=== PATIENT | female | born 1965 | race Caucasian/White ===

== ENCOUNTER → 2019-12-22 10:27 | Outpatient (BNVA) | payer OTHER, SELFPAY | PROVIDERS: Family Provider Nurse Practitioner; PCP Nurse Practitioner; Visit Provider Nurse Practitioner Family | DX: S82.899A Other fracture of unspecified lower leg, initial encounter for closed fracture (principal); X58.XXXA Exposure to other specified factors, initial encounter | CPT/HCPCS: 73610 ==

== ENCOUNTER → 2019-12-24 11:50 | Outpatient (BNVA) | payer OTHER, SELFPAY | PROVIDERS: Family Provider Nurse Practitioner; PCP Nurse Practitioner; Referring Provider Podiatrist Foot & Ankle Surgery; Visit Provider Podiatrist Foot & Ankle Surgery | DX: S82.899A Other fracture of unspecified lower leg, initial encounter for closed fracture (principal); X58.XXXA Exposure to other specified factors, initial encounter | CPT/HCPCS: 73610 ==

== ENCOUNTER → 2020-01-15 08:46 | Outpatient (BNVA) | payer OTHER, SELFPAY | PROVIDERS: Family Provider Nurse Practitioner; PCP Nurse Practitioner; Visit Provider Podiatrist Foot & Ankle Surgery | DX: S82.832A Other fracture of upper and lower end of left fibula, initial encounter for closed fracture (principal); X58.XXXA Exposure to other specified factors, initial encounter | CPT/HCPCS: 73610 ==

== ENCOUNTER → 2020-02-05 08:45 | Outpatient (BNVA) | payer OTHER, SELFPAY | PROVIDERS: Family Provider Nurse Practitioner; PCP Nurse Practitioner; Visit Provider Podiatrist Foot & Ankle Surgery | DX: S82.62XA Displaced fracture of lateral malleolus of left fibula, initial encounter for closed fracture (principal); X58.XXXA Exposure to other specified factors, initial encounter | CPT/HCPCS: 73610 ==

== ENCOUNTER → 2020-02-19 09:06 | Outpatient (BNVA) | payer OTHER, SELFPAY | PROVIDERS: Family Provider Nurse Practitioner; PCP Nurse Practitioner; Visit Provider Podiatrist Foot & Ankle Surgery | DX: Z47.89 Encounter for other orthopedic aftercare (principal); S82.65XD Nondisplaced fracture of lateral malleolus of left fibula, subsequent encounter for closed fracture with routine healing; W19.XXXD Unspecified fall, subsequent encounter | CPT/HCPCS: 73610 ==

== ENCOUNTER → 2023-01-10 14:36 | Outpatient (BNVA) | payer OTHER, SELFPAY | PROVIDERS: Family Provider Nurse Practitioner; PCP Nurse Practitioner; Visit Provider Internal Medicine | DX: M25.50 Pain in unspecified joint (principal); R53.83 Other fatigue; R76.8 Other specified abnormal immunological findings in serum; L40.9 Psoriasis, unspecified; R21 Rash and other nonspecific skin eruption; M45.0 Ankylosing spondylitis of multiple sites in spine; M47.898 Other spondylosis, sacral and sacrococcygeal region; M19.041 Primary osteoarthritis, right hand | CPT/HCPCS: 36415; 72202; 73120; 80053; 81001; 82533; 82550; 82784; 83516; 84100; 84443; 85025; 85651; 86003; 86008; 86036; 86140; 86160; 86162; 86200; 86235; 86255; 86376; 86431; 86704; 86803; 86812; 87340 ==

== ENCOUNTER 2023-02-17 10:37 | Outpatient (CLI) | payer OTHER, SELFPAY ==
[2023-02-17 11:50] LABS: Alanine Aminotransferase 18 U/L (0-33); Albumin Level 4.2 g/dL (3.5-5.2); Alkaline Phosphatase 108 U/L (35-105); Aspartate Amino Transferase 15 U/L (0-32); Blood Urea Nitrogen 14 mg/dL (6-20); Calcium 9.5 mg/dL (8.5-10.5); Carbon Dioxide 29 mmol/L (22-29); Chloride 103 mmol/L (98-107); Globulin 3.2 g/dL (1.3-4.6); Glomerular Filtration Rate 74.5 mL/min (90-130); Glucose 99 mg/dL (65-115); Osmolality Calculated 291 mOsm/kg (285-295); Phosphorus 2.9 mg/dL (2.5-4.5); Sodium 140 mmol/L (136-145); Total Bilirubin 0.5 mg/dL (0.15-1.2); Total Protein 7.4 g/dL (6.6-8.7)
[2023-02-17 11:53] LABS: Anion Gap 11.6 (5-19); Potassium 3.6 mmol/L (3.5-5.1)
== END 2023-02-17 10:38 | disposition home or self-care (01) ==
LOC: LAB 10:37
PROVIDERS: Family Provider Nurse Practitioner; PCP Nurse Practitioner; Visit Provider Internal Medicine
DX: R76.8 Other specified abnormal immunological findings in serum (principal); R53.83 Other fatigue; M25.50 Pain in unspecified joint
CPT/HCPCS: 36415; 80053; 84100

== ENCOUNTER 2023-03-23 10:44 | Outpatient (CLI) | payer OTHER, SELFPAY ==
[2023-03-30 18:21] LABS: Myositis EJ AB <11 SI (<11); Myositis JO-1 AB <11 SI (<11); Myositis MDA-5 AB <11 SI (<11); Myositis MI-2 Alpha AB <11 SI (<11); Myositis MI-2 Beta AB <11 SI (<11); Myositis NXP-2AB <11 SI (<11); Myositis OJ AB <11 SI (<11); Myositis PL-12 AB <11 SI (<11); Myositis PL-7 AB <11 SI (<11); Myositis SRP AB <11 SI (<11); Myositis TIF-1y AB <11 SI (<11)
== END 2023-03-23 10:45 | disposition home or self-care (01) ==
LOC: LAB 10:46
PROVIDERS: PCP Nurse Practitioner; Visit Provider Dermatology
DX: L30.9 Dermatitis, unspecified (principal); L57.8 Other skin changes due to chronic exposure to nonionizing radiation; M33.12 Other dermatomyositis with myopathy
CPT/HCPCS: 36415; 84182; 86235

== ENCOUNTER → 2023-11-13 08:01 | Outpatient (BNVA) | payer OTHER, SELFPAY | PROVIDERS: PCP Nurse Practitioner; Visit Provider Podiatrist Foot & Ankle Surgery | DX: M79.671 Pain in right foot (principal); G57.61 Lesion of plantar nerve, right lower limb | CPT/HCPCS: 73630 ==

== ENCOUNTER 2024-02-02 11:02 | Outpatient (CLI) | payer OTHER, SELFPAY ==
--- NOTE | 2024-02-02 11:30 | MM_ITS ---
WS: [email or web address] SCREENING DIGITAL BREAST TOMOSYNTHESIS MAMMOGRAM WITH CAD HISTORY: Z12.39 - Encounter for other screening for malignant neop... COMPARISON: None. Bilateral CC and MLO with tomosynthesis and synthetic mammography submitted. Computer aided detection analyzed. Breast composition: The breasts are heterogeneously dense, which may obscure small masses. Partially obscured asymmetry in the upper outer quadrant RIGHT breast at a middle depth. Margins are obscured a nd the asymmetry is of slightly increased density as compared to the adjacent breast tissue. No suspi cious calcification. MM/MM scr BI tomosynthesis [id number] IMPRESSION: BI-RADS: 0 - Incomplete: Need additional imaging evaluation FOLLOW UP: Need Additional Imaging RIGHT breast: Spot compression views (CC and MLO). True ML. Ultrasound to follo w if abnormality persists.
== END 2024-02-02 11:03 | disposition home or self-care (01) ==
LOC: RAD 11:03
PROVIDERS: PCP Nurse Practitioner; Visit Provider Nurse Practitioner Women's Health
DX: Z12.31 Encounter for screening mammogram for malignant neoplasm of breast (principal); R92.333 Mammographic heterogeneous density, bilateral breasts; N64.89 Other specified disorders of breast
CPT/HCPCS: 77063; 77067

== ENCOUNTER → 2024-02-05 10:29 | Outpatient (BNVA) | payer OTHER, SELFPAY | PROVIDERS: PCP Nurse Practitioner; Visit Provider Internal Medicine Rheumatology | DX: M06.00 Rheumatoid arthritis without rheumatoid factor, unspecified site (principal); Z79.899 Other long term (current) drug therapy; D80.2 Selective deficiency of immunoglobulin A [IgA]; Z11.59 Encounter for screening for other viral diseases; Z11.1 Encounter for screening for respiratory tuberculosis; R76.8 Other specified abnormal immunological findings in serum; M19.90 Unspecified osteoarthritis, unspecified site | CPT/HCPCS: 36415; 80076; 82565; 85025; 85651; 86140; 86480; 86704; 86803; 87340 ==

== ENCOUNTER 2024-02-20 07:47 | Outpatient (CLI) | payer OTHER, SELFPAY ==
--- NOTE | 2024-02-20 08:00 | MM_ITS ---
WS: [email or web address] ADDITIONAL VIEWS RIGHT MAMMOGRAM WITH DIGITAL BREAST TOMOSYNTHESIS. RIGHT BREAST ULTRASOUND HISTORY: R92.8 - Other abnormal and inconclusive findings on diagn... COMPARISON: 02/02/2024 RIGHT MAMMOGRAM: Spot compression views and true ML with digital breast tomosynthesis and SM. Asymmetry persists but becomes less apparent in the superior RIGHT breast. This asymmetry is located towards the upper outer quadrant but there is also fullness and asymmetry towards the medial breast w hich will be evaluated also by ultrasound. There is no distortion of the soft tissues. RIGHT BREAST ULTRASOUND 2-D and color Doppler imaging submitted. RIGHT breast is very dense. There is no shadowing or persistent mass. MM/MM diag RT tomosynthesis [id number] IMPRESSION: BI-RADS: 2- Benign FOLLOW UP: 1 Year Follow-up No persistent mass is identified by mammography or ultrasound. Recommend return to annual screening mammography.
--- NOTE | 2024-02-20 08:30 | US_ITS ---
WS: [email or web address] ADDITIONAL VIEWS RIGHT MAMMOGRAM WITH DIGITAL BREAST TOMOSYNTHESIS. RIGHT BREAST ULTRASOUND HISTORY: R92.8 - Other abnormal and inconclusive findings on diagn... COMPARISON: 02/02/2024 RIGHT MAMMOGRAM: Spot compression views and true ML with digital breast tomosynthesis and SM. Asymmetry persists but becomes less apparent in the superior RIGHT breast. This asymmetry is located towards the upper outer quadrant but there is also fullness and asymmetry towards the medial breast w hich will be evaluated also by ultrasound. There is no distortion of the soft tissues. RIGHT BREAST ULTRASOUND 2-D and color Doppler imaging submitted. RIGHT breast is very dense. There is no shadowing or persistent mass. US/US breast RT limited* [id number] IMPRESSION: BI-RADS: 2- Benign FOLLOW UP: 1 Year Follow-up No persistent mass is identified by mammography or ultrasound. Recommend return to annual screening mammography.
== END 2024-02-20 07:48 | disposition home or self-care (01) ==
PROVIDERS: PCP Family Medicine; Visit Provider Nurse Practitioner Women's Health
DX: R92.8 Other abnormal and inconclusive findings on diagnostic imaging of breast (principal); R92.333 Mammographic heterogeneous density, bilateral breasts
CPT/HCPCS: 76642; 77061; G0279

== ENCOUNTER → 2024-03-15 14:10 | Outpatient (BNVA) | payer OTHER, SELFPAY | PROVIDERS: PCP Family Medicine; Visit Provider Family Medicine | DX: K29.40 Chronic atrophic gastritis without bleeding (principal); D51.0 Vitamin B12 deficiency anemia due to intrinsic factor deficiency; R76.8 Other specified abnormal immunological findings in serum; E06.3 Autoimmune thyroiditis; R03.0 Elevated blood-pressure reading, without diagnosis of hypertension | CPT/HCPCS: 82306; 82607; 82746; 82941; 84100 ==

== ENCOUNTER 2024-07-30 06:48 | Outpatient (CLI) | payer OTHER, SELFPAY ==
--- NOTE | 2024-07-30 07:15 | MR_ITS ---
WS: [email or web address] MRI RIGHT FOOT WITH AND WITHOUT CONTRAST. COMPARISON: Radiograph 11/13/2023 Multiplanar, multisequence imaging is performed with and without contrast. MultiHance 17 mL. History: Pain to the RIGHT second intertarsal space. History of Duffy's neuroma. Marker is placed along the site of pain which correlates with the space between the second and third proximal phalanges. No underlying soft tissue abnormality is identified. There is an area of soft tissue thickening measuring 4.6 mm which is highly suspicious for a Duffy's neuroma. There is no associated fluid identified. No bursitis. The soft tissue masses along the plantar surface of the distal intertarsal space. There is an additional lobulated cystic mass which extends along the distal peroneal longus tendon along the plantar surface of the foot. Lobulated cystic mass extends over a length of at least 2 cm and extends to the base of the first medial cuneiform. This is in close association with the peroneal longus tendon. On the postcontrast imaging there is minimal peripheral enhancement in the region of the cystic mass. There are prominent vessels coursing distally but no focal collection to suggest an AVM. No enhancing masses. The Duffy's neuroma does not enhance. No marrow edema. Normal tarsometatarsal alignment. Normal Lisfranc ligament. MR/MR foot RT wo/w con [id number] IMPRESSION: 1. At the site of pain between the second and third distal metatarsals is a no nenhancing 4.6 mm mass which is most consistent with a Duffy's neuroma. 2. There is an additional lobulated, minimally and peripherally enhancing cyst ic mass coursing along the horizontal portion of the peroneal longus tendon ext ending towards the proximal first metatarsal and the medial cuneiform. This is most consistent with a 2.0 cm ganglion.
[2024-07-30] MEDS: gadobenate dimeglumine 20 mL vial IV (07:56)
== END 2024-07-30 06:49 | disposition home or self-care (01) ==
PROVIDERS: PCP Family Medicine; Visit Provider Podiatrist Foot & Ankle Surgery
DX: G57.61 Lesion of plantar nerve, right lower limb (principal); R93.6 Abnormal findings on diagnostic imaging of limbs; M79.89 Other specified soft tissue disorders
CPT/HCPCS: 73720

== ENCOUNTER 2024-09-27 06:06 | Day surgery (SDC) | payer OTHER, SELFPAY ==
[2024-09-27] VITALS (11 sets, daily range): BP systolic 99–145; BP diastolic 64–102; PULSE 73–102; RESP 16–25; TEMP 36.2–36.7; O2SAT 92–99; BMI 27.1
--- NOTE | 2024-09-27 07:22 | ANES.PREANE2 ---
Pre-Anesthetic Assessment Height/Weight: Height 1.68 m Weight 76.204 kg Temp Pulse Resp BP Pulse Ox O2 Del Method 98.0 F 102 H 17 138/92 96 Room Air 09/27/24 06:22 09/27/24 06:22 09/27/24 06:22 09/27/24 06:39 09/27/24 06:22 09/27/24 06:24 Preop Diagnosis: Duffy's neuroma and ganglion cyst right foot Operation Date: 09/27/24 08:55 Proposed Procedures p Excision Duffy's Neuroma RIGHT Second Intermetatarsal Space(Right) - Samir Barber DPM s Aspiration and cortisone injection RIGHT foot ganglion cyst(Right) - Samir Barber DPM Familial anesthetic complications: None Was Beta Nelson taken within 24 hours: N/A Was Clonidine taken within 24 hours: N/A Last intake: Intake Last Liquid Date 09/26/24 Last Liquid Time 23:00 Last Solid Date 09/26/24 Last Solid Time 20:00 Social No alcohol and No tobacco Exam alert, oriented x 3, clear to auscultation bilaterally and regular rate & rhythm Airway Mallampati: Class II Dentition: full CV/HEM pernicious anemia - b12 def Metabolic Thyroid Disease (hashimotos) Anesthetic Plan ASA status: 3 Anesthesia: General Risk of > 500 ml blood loss (7ml/kg in children): No Medications/Allergies Home Medications ?Medication ?Instructions ?Recorded ?Confirmed ?Last Taken ?Type cholecalciferol (vitamin D3) 10 10 mcg PO DAILY 09/28/23 09/27/24 09/25/24 History mcg (400 unit) tablet vitamin [id number] B1 1,000 1,000 ml IM 6XD 09/28/23 09/27/24 09/25/24 History mcg-100 mg/mL injection solution liothyronine 25 mcg tablet 100 mcg PO DAILY 12/11/23 09/26/24 09/26/24 History clobetasol 0.05 % topical ointment 1 applic topical DAILY 01/08/24 09/27/24 09/25/24 History cetirizine 10 mg tablet (Zyrtec) 10 mg PO DAILY PRN allergies 09/23/24 09/27/24 09/25/24 History Allergies Allergy/AdvReac Type Severity Reaction Status Date / Time levothyroxine Allergy Severe Drug Verified 09/27/24 06:19 Induced Lupus Sulfa (Sulfonamide Allergy ALGY-Rash Verified 09/27/24 06:19 Antibiotics) Current Medications Generic Name Dose Route Start Last Admin Trade Name Ronakq PRN Reason Stop Dose Admin Sodium Chloride 1,000 mls @ 30 mls/hr 09/27/24 06:30 09/27/24 06:34 Sodium Chloride 0.9% IV 09/28/24 06:29 30 mls/hr .Q24H AISHA Administration PFSH Anesthesia Medical History Autoimmune gastritis Vitamin B12 deficiency anemia due to intrinsic factor deficiency Elevated BP without diagnosis of hypertension Pernicious anemia Darnell's thyroiditis Lichen sclerosus bilateral; limited to inner labia Inflammatory arthritis Malar rash Arthralgia Fatigue PHYLLIS positive 1:320 Surgical History Hx of colonoscopy 10.23 at [place]--normal Family History Mother Breast cancer Brother Hypertension Father Cancer Gastroesophageal cancer Grandmother Cancer uterine Grandfather Cancer colon cancer Denies family history of Colon cancer Ovarian cancer Prostate cancer Diabetes Heart disease Thyroid disease Stroke Social History Smoking and tobacco/nicotine status: never used tobacco/nicotine Alcohol intake: never Substance/Drug Use: never Household members: none Marital status: Single Number of children: 0 Education level details: STORE [employer] Current occupational status: employed Current occupation: [employer]
--- NOTE | 2024-09-27 08:35 | W.PM.OPSUD ---
Surgery/Procedure H&P Update DATE OF PROCEDURE: September 27, 2024 DATE H&P PERFORMED: 09/23/24 H&P UPDATE INFORMATION: I have reviewed H&P completed within last 30 days, I have examined patient prior to procedure, No changes to prior documentation and Risks and benefits of the procedure reviewed PREOP DIAGNOSIS: Duffy's neuroma and ganglion cyst right foot PLANNED PROCEDURE: Operation Date: 09/27/24 08:55 Proposed Procedures p Excision Duffy's Neuroma RIGHT Second Intermetatarsal Space(Right) - Samir Barber DPM s Aspiration and cortisone injection RIGHT foot ganglion cyst(Right) - Samir Barber DPM
[2024-09-27] MEDS: triamcinolone 40 mg/mL SDV INJECTION (08:57)
[2024-09-27] MEDS: BUPivacaine 0.5% INJ 30 mL 21 ML XX (08:58)
[2024-09-27] MEDS: tranexamic acid 1,000 mg/10mL SDV 1000 MG (09:00)
[2024-09-27] MEDS: BUPivacaine liposome 13.3 mg/mL SDV 20 mL 266 MG INJECTION (09:00)
[2024-09-27] MEDS: ceFAZolin 2,000 mg SDV 2000 MG IVP (09:03)
--- NOTE | 2024-09-27 09:26 | P.BOP_ITS ---
Date of Procedure: 05/12/23 Surgeon: Samir Barber DPM Clinical Trial Specialist(s): Dany Procedure(s) performed: Ganglion cyst aspiration and cortisone injection, neuroma excision of second intermetatarsal space of right foot. Findings of the procedure(s): Neuroma right foot, ganglion cyst right foot. Estimated blood loss: 2 mL Specimen(s) removed: Neuroma right foot second intermetatarsal space sent to pathology for permanent. Post-operative diagnosis: Right foot ganglion cyst right foot Duffy's neuroma second intermetatarsal space.
--- NOTE | 2024-09-27 09:26 | PM.OP ---
Operative Report Date of procedure: September 27, 2024 Pre-op diagnosis: Right foot pain M79.673 Duffy's neuroma of second interspace of right foot G57.61 Ganglion cyst of right foot M67.471 Post-op diagnosis: Same Procedure done: 1) Duffy's neuroma excision right second intermetatarsal space. CPT code 36507 2) Aspiration and cortisone injection right foot ganglion cyst. CPT code 92260 Implants: 3-0 Prolene Specimens removed/disposition: Duffy's neuroma and adjacent soft tissue mass right plantar forefoot second metatarsal space sent to pathology for gross anatomical review. Pathology: Soft tissue mass consistent with Duffy's neuroma right foot second intermetatarsal space Surgeon: Samir Barber DPM Rag Cutting Machine Operator: Dany Estimated blood loss: 2 mL 17 minutes IV fluids: See intraoperative documentation Urine output: None Complications: No complications Brief History: Reviewed MRI findings consistent with Duffy's neuroma right second metatarsal space measures 4.6 mm and ganglion cyst measures 2 cm right plantar midfoot. Both are symptomatic. Patient making plans for surgical intervention will entail excision of Duffy's neuroma and excision of ganglion cyst right foot. Anticipating up to 3 months off work before she can return without restriction. The 59-year-old female with a history of Duffy's neuroma presents for surgical consultation. The MRI indicates a significantly enlarged nerve, suggesting a more complex surgical approach may be necessary. The patient experiences chronic pain, impacting her daily activities and footwear choices. Additionally, the patient has a ganglion cyst causing discomfort, particularly with shoes that have an arch. The cyst's location near the peroneal longus tendon complicates surgical excision, warranting consideration of alternative treatments. 1. Duffy's Neuroma The patient is scheduled for surgical excision of the Duffy's neuroma, with consideration of a plantar approach due to the size of the neuroma. Post-operative care will involve non-weightbearing for three weeks, followed by gradual return to weightbearing activities. 2. Ganglion Cyst The ganglion cyst will be managed with aspiration and corticosteroid injection under fluoroscopic guidance to minimize surgical risks. The patient is advised of the potential for recurrence and the limitations of surgical excision due to the cyst's location. - Follow non-weightbearing instructions for three weeks post-surgery. - Use crutches or a knee scooter as needed to avoid putting weight on the foot. - Monitor for any signs of infection or complications and report them immediately. - Attend follow-up appointments as scheduled to monitor recovery and address any concerns. The decision to proceed with surgical excision of the Duffy's neuroma was based on the significant enlargement of the nerve, as indicated by MRI findings. A plantar approach was recommended to ensure adequate visualization and excision margins. For the ganglion cyst, aspiration and corticosteroid injection were chosen to minimize surgical risks, given the cyst's proximity to critical structures. The patient was informed of the potential for recurrence and the need for careful post-operative management to optimize outcomes. I reviewed at length with the patient, the risks, potential complications, benefits, alternatives, expectations, and typical outcomes associated with the surgery. The risks and potential complications were explained in detail, including but not limited to infection, wound dehiscence or soft tissue complications, bleeding and hematoma, chronic edema, neuritis or nerve damage producing numbness or chronic pain, CRPS, failure to relieve pain or worsening pain, thick / painful / unsightly scar, limited motion / stiffness, malposition, delayed union, malunion, or nonunion, fracture, reaction to implants, anesthetic complications, venous thromboembolism, and deformity recurrence. I discussed the notion of no regrets with the patient as it pertains to complications and outcomes. The patient seemed to understand the nature of the proposed care and required convalescence. They asked appropriate questions, answered to their satisfaction. They are aware no guarantees can be made as to a satisfactory outcome and they understand there may be other possible unforeseen complications or outcomes not listed here that will be treated accordingly if they arise. There were no written or implied guarantees given to the patient. They gave informed consent to proceed. Procedure: PROCEDURE IN DETAIL Patient was brought to the operating room and placed on the operating room in table in the supine position. A timeout was performed. Anesthesia was administered by the anesthesia service, local anesthesia was administered by myself consisting of 20 cc of 0.5% Marcaine and 20 cc of Exparel at the operative site right foot right foot was then prepped, draped and scrubbed in the usual aseptic fashion. Foot was then exsanguinated with an esmarch bandage and tourniquet was inflated to 250mmHg. Attention was directed to the right plantar forefoot where a linear longitudinal incision was made with a #15 blade at the plantar aspect of the right second intermetatarsal space through skin and down to fat layer. Care was taken to retract and preserve all neurovascular and tendinous structures. All bleeders were ligated and cauterized as necessary. Self-retaining retractor was utilized and blunt dissection was carried down through fat layer utilizing curved mosquito hemostats. The common plantar digital nerve at the second intermetatarsal space was directly visualized, of note second was a bulbous thickening consistent with a Duffy's neuroma just proximal to its bifurcation, this bulbous thickening was at the level of the weightbearing surface of the metatarsal parabola. The nerve was identified and transected at its most distal and proximal margins. Care was taken to retract proximally and transected nerve at its most proximal margin this was approximately 3 cm proximal to the weightbearing surface of the metatarsal parabola. The specimen was passed from the operative field and sent to pathology for review. Incision site was dressed with copious amounts of sterile saline solution. Following saline flush skin closure was performed utilizing 3-0 Prolene with alternating simple interrupted and horizontal mattress sutures. Attention was then directed to the right plantar instep where a cortisone injection was administered consisting of 1 to one-to-one mixture of 0.5% Marcaine plain, dexamethasone and Kenalog total of 3 cc aspiration and injection performed to ganglion cyst at the inferior surface of the medial cuneiform. The Incision sites was dressed with Adaptic, sterile 4 x 4, Kerlix and Dominik wrap. The tourniquet was released and prompt hyperemic response was noted to all digits. The patient tolerated the anesthesia and procedure well. Patient was transferred to the PACU with vital signs stable and vascular status intact to the lower extremity. Cam boot was applied to the right lower extremity. Patient was educated on the importance of elevating her right foot while at rest. She is to be nonweightbearing with crutches for the next 2 weeks. Was given a prescription for hydrocodone 10/325 mg to be taken judiciously as prescribed. She was also provided my cell number and is to contact me with any postoperative questions or concerns.
[2024-09-27] MEDS: HYDROcodone-acetaminophen 10-325 mg Tablet 1 TAB PO (10:18)
[2024-09-27] MEDS: ondansetron 2 mg/ML SDV 2 mL 4 MG IVP (10:59)
--- NOTE | 2024-09-27 11:05 | ANE.PACU2 ---
Inpatient post-anesthesia follow up: Vital signs: Temperature 97.8 F Pulse Rate 81 Respiratory Rate 18 Blood Pressure 118/81 Pulse Oximetry 95 Oxygen Delivery Me thod Room Air Oxygen Flow Rate 8 Fraction of Inspir ed Oxygen
== END 2024-09-27 11:09 | disposition home or self-care (01) ==
PROVIDERS: PCP Family Medicine; Visit Provider Podiatrist Foot & Ankle Surgery
PROC: (CPT 28080; principal; 2024-09-27 08:45)
PROC: (CPT 96372; 2024-09-27 08:45)
DX: G57.61 Lesion of plantar nerve, right lower limb (principal); D36.13 Benign neoplasm of peripheral nerves and autonomic nervous system of lower limb, including hip; M67.471 Ganglion, right ankle and foot; D64.9 Anemia, unspecified; E06.3 Autoimmune thyroiditis
CPT/HCPCS: 28080; 20612; 88304; J0131; J0666; J0690; J1100; J1885; J2250; J2405; J2704; J3010; J3301; J3490; J7030; J9999

== ENCOUNTER → 2025-01-13 13:59 | Outpatient (BNVA) | payer OTHER, SELFPAY | PROVIDERS: PCP Nurse Practitioner; Visit Provider Nurse Practitioner Women's Health | DX: Z12.4 Encounter for screening for malignant neoplasm of cervix (principal) | CPT/HCPCS: 87624 ==